=== PATIENT | male | born 1955 ===

== ENCOUNTER 2018-11-26 05:41 | Day surgery (SDC) | payer MEDICARE | END 2018-11-27 15:48 | disposition home or self-care (01) | LOC: C.SDS 05:41 → C.9S 14:43 → C.5S 14:43 → C.9S 14:43 → C.SDS 14:43 → C.5S 15:51 → C.SDS 14:43 → C.5S 17:17 | DX: S86.012A Strain of left Achilles tendon, initial encounter (principal) ==